=== PATIENT | male | born 1945 | race Caucasian/White ===

== ENCOUNTER → 2016-05-28 | Outpatient (CLI) | payer MEDICARE, OTHER ==
[~2016-05-28] MED LIST: ASPIR 8181 MG PO; BREO ELLIPTA 11 EACH INH; HYDROCHLOROTHIA25 MG PO; IMDUR ER TAB 3030 MG PO; ISOSORBIDE MONO30 MG PO; LIPITOR TAB 1010 MG PO; NITROSTAT0.4 MG SL; NORVASC 5 MG TAB5 MG PO; OMEPRAZOLE20 MG PO; PRAVACHOL40 MG PO; PROAIR HFA8.5 GM INH; RANEXA1000 MG PO; SYMBICORT 16010.2 GM INH
== END ==
LOC: RAD 09:43
DX: Z95.1 Presence of aortocoronary bypass graft (principal); J44.9 Chronic obstructive pulmonary disease, unspecified; J98.11 Atelectasis
CPT/HCPCS: 71020

== ENCOUNTER → 2016-06-18 | Outpatient (CLI) | payer MEDICARE, OTHER | LOC: LAB 14:21 | DX: E78.5 Hyperlipidemia, unspecified (principal) | CPT/HCPCS: 36415; 80069; 81001 ==